=== PATIENT | female | born 1945 | race Caucasian/White ===

== ENCOUNTER 2017-08-05 19:29 | Emergency (ER) | END 2017-08-05 23:57 | disposition home or self-care (01) ==

== ENCOUNTER 2017-08-08 13:14 | Observation (INO) | END 2017-08-09 14:15 | disposition home or self-care (01) ==

== ENCOUNTER 2018-06-19 11:28 | Emergency (ER) | payer BC ==
[~2018-06-19] VITALS: Ht 154.9 cm; Wt 75.4 kg
[~2018-06-19 11:28] MED LIST: AMLODIPINE PO; FUROSEMIDE; INHALER; LETROZOLE PO; PRAV40TA76 PO
[2018-06-19 11:31] VITALS: Ht 154.9 cm; Wt 75.4 kg
[2018-06-19] MEDS ORDERED: KETOROLAC 15 MG INJ IV STA (12:47)
[2018-06-19] MEDS ORDERED: morphine 4 MG/ML VIAL IV STA (12:47)
[2018-06-19] MEDS ORDERED: HYDR-4011 PO (14:11)
[2018-06-19] MEDS ORDERED: IBUP-1542 PO (14:11)
[2018-06-19] MEDS ORDERED: FURO20TA3 ORAL (14:19)
[2018-06-19] MEDS ORDERED: AMLO-145 ORAL (14:19)
[2018-06-19] MEDS ORDERED: LOSA25TA12 ORAL (14:19)
[2018-06-19] MEDS ORDERED: LETR2.5T ORAL (14:19)
[2018-06-19 14:32] VITALS: BP 116/67; PULSE 81; RESP 18
--- NOTE | 2018-06-20 02:18 | ERD ---
ER Documentation Chief Complaint Chief Complaint pt bib family with c/o left neck/shoulder/arm pain x 3 days HPI 72-year-old female brought in by her daughter complaining of left shoulder pain for the past 3 days. She states the pain is worse with movement, radiates down her arm and up into her neck with movement of her shoulder. She has taken Tylenol and Motrin at home without relief. Her pain is a 9 out of 10. No alleviating factors. No associated numbness or tingling in the arm. She denies any recent injuries. No history of this. No chest pain or shortness of breath. Denies any dizziness, focal weakness or numbness. ROS All systems reviewed and are negative except as per history of present illness. Medications Home Meds Active Scripts Hydrocodone/Acetaminophen ([place] 5-325 Tablet) 1 Each Tablet, 1 EACH PO Q6 PRN for SEVERE PAIN LEVEL 7-10, #7 TAB Prov:VICKI IQBAL MD 06/19/18 Ibuprofen* (Ibuprofen*) 600 Mg Tablet, 600 MG PO Q6H PRN for PAIN, #20 TAB Prov:VICKI IQBAL MD 06/19/18 Reported Medications Furosemide* (Furosemide*) 20 Mg Tablet, 1 TAB ORAL DAILY PRN for EDEMA 06/19/18 Letrozole* (Letrozole*) 2.5 Mg Tablet, 1 TAB ORAL DAILY 06/19/18 Amlodipine Besylate* (Amlodipine Besylate*) 5 Mg Tablet, 1 TAB ORAL DAILY 06/19/18 Losartan Potassium* (Losartan Potassium*) 25 Mg Tablet, 1 TAB ORAL DAILY 06/19/18 Pravastatin Sodium* (Pravastatin Sodium*) 40 Mg Tablet, 40 MG PO HS, TAB 08/05/17 Discontinued Reported Medications [Amlodipine] No Conflict Check, PO 04/02/18 [Letrozole] No Conflict Check, PO 04/02/18 [Inhaler] No Conflict Check 04/02/18 [Furosemide] No Conflict Check 04/02/18 Allergies Allergies: Coded Allergies: No Known Allergy (Unverified , 06/19/18) PMhx/Soc History of Surgery: Yes (RIGHT BREAST; ) Anesthesia Reaction: No Hx Neurological Disorder: No Hx Respiratory Disorders: Yes (BRONCHIAL ASTHMA) Hx Cardiac Disorders: Yes (HTN) Hx Psychiatric Problems: No Hx 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 Neck: Full range of motion. No meningismus. No C-spine or paraspinal muscle tenderness palpation. Resp: Clear to auscultation bilaterally Cardio: Regular rate and rhythm, no murmurs Abd: Soft, non tender, non distended. Normal bowel sounds Skin: No petechiae or rashes Back: No midline or flank tenderness Ext: No cyanosis, or edema. Left shoulder joint with no obvious swelling or deformity. Tender to palpation along the superior aspect of the shoulder joint. Limited range of motion due to pain. Full range of motion at the elbow and w rist of the left upper extremity. 2+ radial pulses. Good bone crusher strength. Neur: Awake and alert, oriented, normal speech, cranial nerves intact, sensations intact in all 4 extremities. Strength intact in all 4 extremities Psych: Normal Mood and Affect Result Diagram: 06/19/18 1256 06/19/18 1256 Results 24 hrs Laboratory Tests Test 06/19/18 12:56 White Blood Count 10.1 10^3/ul Red Blood Count 4.28 10^6/ul Hemoglobin 13.2 g/dl Hematocrit 40.0 % Mean Corpuscular Volume 93.5 fl Mean Corpuscular Hemoglobin 30.8 pg Mean Corpuscular Hemoglobin Concent 33.0 g/dl Red Cell Distribution Width 14.0 % Platelet Count 224 10^3/UL Mean Platelet Volume 10.7 fl Immature Granulocytes % 0.600 % Neutrophils % 70.9 % Lymphocytes % 17.9 % Monocytes % 8.6 % Eosinophils % 1.5 % Basophils % 0.5 % Nucleated Red Blood Cells % 0.0 /100WBC Immature Granulocytes # 0.060 10^3/ul Neutrophils # 7.2 10^3/ul Lymphocytes # 1.8 10^3/ul Monocytes # 0.9 10^3/ul Eosinophils # 0.2 10^3/ul Basophils # 0.1 10^3/ul Nucleated Red Blood Cells # 0.0 10^3/ul Sodium Level 141 mmol/L Potassium Level 3.8 mmol/L Chloride Level 103 mmol/L Carbon Dioxide Level 26 mmol/L Anion Gap 12 Blood Urea Nitrogen 16 mg/dl Creatinine 0.58 mg/dl Est Glomerular Filtrat Rate mL/min mL/min Glucose Level 97 mg/dl Calcium Level 10.2 mg/dl Total Bilirubin 0.9 mg/dl Direct Bilirubin 0.00 mg/dl Indirect Bilirubin 0.9 mg/dl Aspartate Amino Transf (AST/SGOT) 27 IU/L Alanine Aminotransferase (ALT/SGPT) 13 IU/L Alkaline Phosphatase 128 IU/L Troponin I < 0.012 ng/ml Total Protein 8.2 g/dl Albumin 4.6 g/dl Globulin 3.60 g/dl Albumin/Globulin Ratio 1.27 Current Medications Medications Dose Sig/[place] Start Time Status Last (Trade) Ordered Route PRN Stop Time Admin Dose Reason Admin Morphine 4 mg ONCE STAT 06/19/18 DC 06/19/18 Sulfate IV 12:47 13:00 (morphine) 06/19/18 12:49 Ketorolac 15 mg ONCE STAT 06/19/18 DC 06/19/18 Tromethamine IV 12:47 13:00 (Toradol) 06/19/18 12:49 Procedures/MDM EMERGENT LABS AND DIAGNOSTIC STUDIES: Lab Results above were reviewed and interpreted by me. CBC: no anemia or evidence of infection CMP: No evidence of electrolyte abnormality, renal failure, hypoglycemia, liver failure, or biliary obstruction Troponin within normal limits, not indicative of cardiac ischemia 12-lead EKG was interpreted by Rakan Iqbal MD: Normal Sinus Rhythm Normal axis Normal intervals No acute ST or T wave changes suggestive of acute ischemia or STEMI. Radiology Results as interpreted by Radiology below were reviewed by Seth Iqbal MD: CXR: without any acute disease X-ray left shoulder: Extensive calcific tendinitis. Follow-up MRI is recommended. Initial Nursing notes reviewed. Previous Medical Records requested via the Electronic Health Record. EMERGENCY DEPARTMENT COURSE / MEDICAL DECISION MAKING: Patient is presenting with atraumatic left shoulder pain. Doubt cardiac etiology or pulmonary pathology. Doubt aortic or arterial dissection. Do not suspect DVT. I suspect this is musculoskeletal in origin. X-rays did show evidence of calcific tendinitis which is likely the cause of her pain. Her pain improved with treatment with pain medications here. I explained the diagnosis to the patient and her daughter. I recommended shoulder sling and pain medications for now until her symptoms improve. Regardless, I did recommend follow-up with PCP as she will need an outpatient MRI and possibly physical therapy. Her symptoms need to be monitored for improvement. Patient and daughter understand discharge plan. Everything was explained with a transport truck driver. All questions were answered. Patient's blood pressure was elevated (>120/80) but appears stable without evidence of hypertensive emergency or urgency. The patient was counseled about the risks of hypertension and urged to pursue outpatient monitoring and therapy within a week with their primary care physician. Departure Diagnosis: Primary Impression: Calcific tendonitis of left shoulder Condition: Stable Patient Instructions: Tendonitis Additional Instructions: Qu es la tendinitis calcificada? La tendinitis calcificada es natty afeccin que causa la formacin de un pequeo depsito de calcio, generalmente de aproximadamente 1-2 centmetros, dentro de los tendones del manguito rotador. Estos depsitos generalmente se encuentran en pacientes de al menos 30 a 40 aos de edad, y tienen natty mayor incidencia en di abticos. Los depsitos de calcio no siempre son dolorosos, e incluso cuando son dolorosos, a menudo se resuelven espontneamente despus de un perodo de 1-4 semanas. Cules son las causas de la tendinitis calcificada? La causa de los depsitos de calcio dentro del tendn del manguito rotador no se comprende completamente. Se powell sugerido diferentes ideas, incluyendo el suministro de gordo y el envejecimiento del tendn, matt la evidencia que respalda estas conclusiones no est [place]. Cul es el tratamiento de la tendinitis calcificada? El tratamiento no quirrgico es richa siempre la primera lnea de tratamiento para la tendinitis calcificada. El protocolo de tratamiento es similar al tratamiento para el sndrome de pinzamiento del hombro.[place] incluye: [employer] / EjerciciosLos ejercicios y estiramientos pueden ayudar a prevenir un hombro rgido. Hardik de los problemas ms difciles asociados con la tendinitis calcificada es el desarrollo de un hombro congelado debido al dolor. Los ejercicios pueden ayudar a prevenir que kristen problema ocurra. Medicamentos antiinflamatorios Los medicamentos antiinflamatorios pueden ayudar a tratar el dolor asociado con la tendinitis calcificada. Ningn estudio barton mostrado un cambio significativo en el curso temporal de los sntomas con estos medicamentos, matt los pacientes ciertamente powell disminuido los sntomas. Las inyecciones de cortisona actan de manera similar y pueden brindar un mayor alivio a ciertos pacientes. Aplicacin de calor hmedo La aplicacin de calor hmedo es tremendamente til para aliviar el dolor de la tendinitis calcificada. Natty toallita tibia es natty manera perfecta de llevar esta calidez al hombro. Pee se mencion anteriormente, simplemente el control de los sntomas con estos pasos permitir suficiente tiempo para resolver el problema en la mayora de los pacientes. El depsito de calcificacin sera menudo permanecen en estos pacientes, matt el objetivo del tratamiento es controlar los sntomas causados ??por esta condicin, no necesariamente hacer que el calcio desaparezca. Eventualmente, el depsito de calcio se resolver. VICKI IQBAL MD Jun 20, 2018 02:18
== END 2018-06-19 15:13 | disposition home or self-care (01) ==
LOC: E/R 11:28
DX: M75.32 Calcific tendinitis of left shoulder (principal); I10 Essential (primary) hypertension; J45.909 Unspecified asthma, uncomplicated; Z85.3 Personal history of malignant neoplasm of breast
CPT/HCPCS: 36415; 71045; 73030; 80053; 84484; 85025; 96374; 96375; 99285; J1885; J2270; 93005